=== PATIENT | male | born 1950 | race Caucasian/White ===

== ENCOUNTER 2017-11-02 14:59 | Emergency (ER) | payer OTHER, MEDICARE ==
[~2017-11-02] VITALS: Ht 185.4 cm; Wt 97.5 kg
[~2017-11-02 14:59] MED LIST: CHLORTHALIDONE25 M1 PO; LOSARTAN POTASS50 M1 PO; MONTELUKAST SOD10 M1 PO; PRAVASTATIN SOD40 M2 PO
[2017-11-02 15:04] VITALS: BP 155/77
--- NOTE | 2017-11-02 16:50 | RADIOLOGY REPORT ---
EXAMINATION: XR CHEST CLINICAL INFORMATION: Cough, congestion. Rule out pneumonia COMPARISON: None TECHNIQUE: 2 views of the chest were obtained. FINDINGS: Lungs are clear. No focal consolidation or mass. Normal pulmonary vascularity. No pleural effusion or pneumothorax. Mildly tortuous aorta. Normal heart size. No acute osseous abnormality. Mild degenerative changes of the thoracic spine. IMPRESSION: No acute pulmonary disease.
--- NOTE | 2017-11-02 17:11 | ED INFLUENZA/URI COMPLAINT ---
History of Present Illness General Chief Complaint: General Adult Stated Complaint: "MY LUNGS HURT. I WAS SENT BY WALK IN" ?PNEUMON Source: patient, family Exam Limitations: no limitations Vital Signs & Intake/Output Vital Signs & Intake/Output Vital Signs Date Time Temp Pulse Resp B/P B/P Pulse O2 O2 Flow FiO2 Mean Ox Delivery Rate 11/02 1608 Room Air 11/02 1504 98.8 85 18 155/77 98 Room Air Allergies Coded Allergies: Quinazoline Analogues (ANAPHYLAXIS 02/02/17) erythromycin base (From ERYTHROCIN) (ANAPHYLAXIS 02/02/17) Reconcile Medications Amoxicillin/Potassium Clav (Augmentin 875-125 Tablet) 875 MG-125 MG TABLET 1 TAB PO BID sinusitis Brompheniramine/Pseudoephed/Dm (Bromfed Dm Cough Syrup) 2 MG-30 MG-10 MG/5 ML SYRUP 5-10 ML PO Q4-6 PRN PRN cough/congestion Chlorthalidone 25 MG TABLET 0.5 TAB PO DAILY WATER RETENTION (Reported) Losartan Potassium 50 MG TABLET 1 TAB PO DAILY HEART (Reported) Montelukast Sodium 10 MG TABLET 1 TAB PO DAILY ALLERGIES (Reported) Pravastatin Sodium 40 MG TABLET 1 TAB PO QPM CHOLESTEROL (Reported) Triage Note: 67 YO MALE TO TRIAGE C/O CHEST/HEAD CONGESTION WITH DRY COUGH. STATES WAS JUST SEEN AT THE WALK IN WHO GAVE HIM A NEB AND ADVISED HIM TO COME TO THE ER. ALSO C/O CLOGGED EARS. Triage Nurses Notes Reviewed? yes Onset: Gradual Duration: day(s): Timing: recent history HPI: 67yo male with hx of HTN presents to ED complaining of cough, congestion, headache, ear pain, sore throat x 3 days. PAtient states "my lungs hurt when I cough". Patient's is being evaluated for similar symptoms. Patient was seen at a walk-in clinic and was given a albuterol inhaler however felt shaky afterwards. It was recommended that he come here to the hospital. Patient has Augmentin antibiotics at home which he had left over from a previous infection, he began taking this medication for his current symptoms. The patient denies chest pain, vomiting, abdominal pain, fever. (Helen HUTCHINSON,Araceli Perez) Past History Travel History Traveled to [place] past 21 day No Medical History Any Pertinent Medical History? see below for history Cardiovascular: hypertension, hyperlipidemia Cancer(s): melanoma Surgical History Surgical History: non-contributory Psychosocial History What is your primary language [place] Tobacco Use: Never used Family History Hx Contributory? No (Araceli Tejeda) Review of Systems Review of Systems Constitutional: Reports: no symptoms. EENTM: Reports: see HPI. Respiratory: Reports: see HPI. Cardiovascular: Reports: no symptoms. GI: Reports: no symptoms. Genitourinary: Reports: no symptoms. Musculoskeletal: Reports: no symptoms. Skin: Reports: no symptoms. Neurological/Psychological: Reports: no symptoms. Hematologic/Endocrine: Reports: no symptoms. Immunologic/Allergic: Reports: no symptoms. All Other Systems: Reviewed and Negative (Araceli Tejeda) Physical Exam Physical Exam General Appearance: well developed/nourished, no apparent distress, alert, awake Head: atraumatic, normal appearance Eyes: Bilateral: normal appearance. Ears, Nose, Throat: normal ENT inspection, hearing grossly normal, Tympanic normal, pharynx normal, frontal sinus tenderness Neck: normal inspection, supple, full range of motion Respiratory: normal breath sounds, no respiratory distress, lungs clear Cardiovascular: regular rate/rhythm Back: normal inspection, normal range of motion Extremities: normal inspection, normal range of motion Neurologic/Psych: awake, alert, oriented x 3 Skin: intact, normal color, warm/dry Core Measures Sepsis Present: No Sepsis Focused Exam Completed? No (Araceli Tejeda) Progress Differential Diagnosis: influenza, otitis, pneumonia, pharyngitis, sinusitis Plan of Care: Orders Procedure Date/time Status RAPID VIRAL INFLUENZA A 11/02 1631 Complete Laboratory Tests 11/02/17 1559: Sodium Cancelled, Potassium Cancelled, Chloride Cancelled, Carbon Dioxide Cancelled, Anion Gap Cancelled, BUN Cancelled, Creatinine Cancelled, BUN/ Creatinine Ratio Cancelled, Glucose Cancelled, Calcium Cancelled, Total Bilirubin Cancelled, AST Cancelled, ALT Cancelled, Alkaline Phosphatase Cancelled, Total Protein Cancelled, Albumin Cancelled, Globulin Cancelled, Albumin/Globulin Ratio Cancelled, CBC w Diff Cancelled, WBC Cancelled, RBC Cancelled, Hgb Cancelled, Hct Cancelled, MCV Cancelled, MCH Cancelled, MCHC Cancelled, RDW Cancelled, Plt Count Cancelled, MPV Cancelled Microbiology 11/02 1645 NASOPHARYN: Influenza Virus A & B Rapid Smear - COMP Chest x-ray is normal. Influenza swab is negative. Patient's vital signs are stable, no acute distress. Patient has sinus tenderness, possible acute sinusitis. Will treat for sinusitis and outpatient follow-up with his primary care doctor. Following flu swab patient had minor bleeding from nose. Bleeding well controlled without necessity of Rhino Rocket. Patient given strict return precautions and educated on hemostasis. Patient agrees with plan of care. Diagnostic Imaging: Viewed by Me: Radiology Read. Discussed w/RAD: Radiology Read. CXR Impression: PATIENT: KEITH CAVANAUGH PRESENT AGE: 67 PATIENT ACCOUNT NO: [id number] : 49 LOCATION: [facility] ORDERING PHYSICIAN: Araceli HUTCHINSON SERVICE DATE: 11/02/17 EXAM TYPE: RAD - XRY-CHEST XRAY, TWO VIEWS EXAMINATION: XR CHEST CLINICAL INFORMATION: Cough, congestion. Rule out pneumonia COMPARISON: None TECHNIQUE: 2 views of the chest were obtained. FINDINGS: Lungs are clear. No focal consolidation or mass. Normal pulmonary vascularity. No pleural effusion or pneumothorax. Mildly tortuous aorta. Normal heart size. No acute osseous abnormality. Mild degenerative changes of the thoracic spine. IMPRESSION: No acute pulmonary disease. DICTATED BY: Reza Garcia MD DATE/TIME DICTATED:11/02/171645 MACHINE SEWER: JOVANI DATE/TIME TRANSCRIBED:11/02/171645 CONFIDENTIAL, DO NOT COPY WITHOUT APPROPRIATE AUTHORIZATION. <Electronically signed in Other Vendor System> SIGNED BY: Reza Garcia MD 11/02/17 1650 Initial ED EKG: none (Helen HUTCHINSON,Araceli Perez) Departure Departure Disposition: HOME OR SELF CARE Condition: Stable Clinical Impression Primary Impression: Sinusitis Qualifiers: Sinusitis location: unspecified location Chronicity: acute Recurrence: non-recurrent Qualified Code: J01.90 - Acute sinusitis, unspecified Secondary Impressions: Cough Referrals: Nestor Watkins MD (PCP/Family) Additional Instructions: Beginning antibiotics as prescribed, take full course of antibiotics. Begin Bromfed syrup for cough and congestion. Follow-up with your primary care doctor. Return if you have worsening symptoms or concerns. Please note that there might be incidental findings in your evaluation that are unrelated to the current emergency department visit. Please notify your primary care doctor about this emergency department visit in order to obtain and review all of the testing performed so that these incidental findings can be monitored as needed. If you had an x-ray performed, please understand that some fractures may not be seen on the initial set of x-rays. If your symptoms persist you might need a repeat set of x-rays to check for such a fracture. If you had a laceration evaluated, please understand that foreign bodies such as glass or wood may not be visible to the naked eye or on plain x-rays. If the wound becomes red, swollen, increasingly more painful or if there is any drainage from the wound, please have it reevaluated by a physician for the possibility of a retained foreign body. If you're unable to follow up as outlined in the discharge instructions please return to the emergency department. Thank you for choosing the [facility] Emergency Department for your care. It was a pleasure to serve you today. Departure Forms: Customer Survey General Discharge Information Prescriptions: Current Visit Scripts Amoxicillin/Potassium Clav (Augmentin 875-125 Tablet) 1 TAB PO BID #14 TAB Brompheniramine/Pseudoephed/Dm (Bromfed Dm Cough Syrup) 5-10 ML PO Q4-6 PRN PRN cough/congestion #120 ML (Helen HUTCHINSON,Araceli Perez) PA/COUNSELLORS Co-Sign Statement Statement: ED Attending supervision documentation- x I saw and evaluated the patient. I have also reviewed all the pertinent lab results and diagnostic results. I agree with the findings and the plan of care as documented in the PA's/COUNSELLORS's documentation. [] I have reviewed the ED Record and agree with the PA's/COUNSELLORS's documentation. [] Additions or exceptions (if any) to the PAs/COUNSELLORS's note and plan are summarized below: [] (Jamie JAMESON,Tim)
[2017-11-02] MEDS ORDERED: BROMFED DM COU118 M1 PO (17:22)
[2017-11-02] MEDS ORDERED: AUGMENTIN 875-1 EACH PO (17:22)
== END 2017-11-02 17:33 ==
LOC: ERH 14:59
DX: J32.9 Chronic sinusitis, unspecified (principal); R05 Cough
CPT/HCPCS: 71046; 87804; 87804-59